=== PATIENT | male | born 1950 | race Caucasian/White ===

== ENCOUNTER → 2016-08-28 | Outpatient (CLI) | payer BC, OTHER ==
[~2016-08-28] VITALS: Ht 193 cm; Wt 111.7 kg
[~2016-08-28] MED LIST: ACET-24 PO; ALLO300T2 PO; ASPEC81 PO; ASPI81TA28 PO; ATEN50TA8 PO; ATOR-22 PO; CLB200 PO; DICL-201 PO; GLUC1CAP35 PO; HYDR25TA4 PO; LISI-725 PO; MULT-506 PO; RXC5 PO
[2016-08-28 13:42] VITALS: Ht 193 cm; Wt 111.7 kg
--- NOTE | 2016-08-28 14:11 | PAT Medication Instructions ---
Service Date Aug 28, 2016. Current Home Medication List Allopurinol (Zyloprim), 300 MG PO QAM Aspirin (Aspirin Ec), 81 MG PO QAM Atenolol (Tenormin), 50 MG PO QAM Atorvastatin (Lipitor), 20 MG PO QPM Diclofenac (Voltaren), 75 MG PO QAM PRN for RN Hydrochlorothiazide (Hctz), 25 MG PO QAM Lisinopril (Zestril), 20 MG PO QAM Medication Instructions For Your Scheduled Surgery - Check with surgeon for instructions: Diclofenac (Voltaren), 75 MG PO QAM PRN for RN Aspirin (Aspirin Ec), 81 MG PO QAM - Hold the following medications the morning of surgery: Lisinopril (Zestril), 20 MG PO QAM Hydrochlorothiazide (Hctz), 25 MG PO QAM - Take the following medications the morning of surgery with a sip of water: Atenolol (Tenormin), 50 MG PO QAM Allopurinol (Zyloprim), 300 MG PO QAM - Take the following medications as scheduled the night before surgery: Atorvastatin (Lipitor), 20 MG PO QPM If you have any questions please call us at [phone] (Savannah Block PA-C) or [phone] or [phone]
--- NOTE | 2016-08-28 14:45 | DIAGNOSTIC IMAGING REPORT ---
CHEST PREADMISSION(PA/LAT) CLINICAL HISTORY: PAT preoperative evaluation COMPARISON STUDY: No previous studies for comparison. FINDINGS: A potential nodular density right pulmonary apex versus overlap artifact. Lungs otherwise appear clear. No evidence for cardiac enlargement. Degenerative changes thoracic spine. IMPRESSION: Nodular density versus overlap artifact right pulmonary apex. CT of the chest is recommended as follow-up. Electronically signed by: Grover Mantilla M.D. 08/28/2016 2:43 PM Dictated Date/Time: 08/28/2016 2:42 PM
[2016-08-28 16:34] LABS: BASO % 0.4 %; BASO ABS # 0.02 K/uL (0-0.2); COMPLETE YES; EOS % 1.1 %; HEMATOCRIT 42.3 % (42-52); IG% 0.2 %; LYMPH % 23.5 %; LYMPH ABS # 1.34 K/uL (1.2-3.4); MEAN CELL VOLUME 92.8 fL (80-100); MEAN CORPUSCULAR HGB CONC 36.6 g/dl (32-36); MEAN PLATELET VOLUME 10.1 fL (7.4-10.4); MONO % 10.7 %; NEUT % 64.1 %; PLATELET COUNT 163 K/uL (130-400); RED BLOOD COUNT 4.56 M/uL (4.7-6.1); WHITE BLOOD COUNT 5.71 K/uL (4.8-10.8)
[2016-08-28 16:38] LABS: URINE APPEARANCE CLEAR (CLEAR); URINE BILIRUBIN NEG (NEG); URINE COLOR YELLOW; URINE NITRITE NEG (NEG); URINE PH 6.5 (4.5-7.5); URINE SPECIFIC GRAVITY 1.011 (1.000-1.030); UROBILINOGEN NEG (NEG)
[2016-08-28 16:40] LABS: MANUAL MICROSCOPIC REQUIRED? NO; REVIEW REQ? NO
[2016-08-28 16:45] LABS: PARTIAL THROMBOPLASTIN RATIO 1.1; PROTHROMBIN TIME (PATIENT) 10.9 SECONDS (9.0-12.0)
[2016-08-28 17:07] LABS: BUN/CREATININE RATIO 12.6 (10-20); CALCIUM 9.3 mg/dl (8.5-10.1); CREATININE 1.2 mg/dl (0.60-1.40); POTASSIUM 3.6 mmol/L (3.5-5.1)
== END | disposition home or self-care (01) ==
LOC: C.LAB 08:00 → EDSTATUS 09-17 07:10
DX: Z01.810 Encounter for preprocedural cardiovascular examination (principal); Z01.811 Encounter for preprocedural respiratory examination; Z01.812 Encounter for preprocedural laboratory examination; R91.8 Other nonspecific abnormal finding of lung field

== ENCOUNTER → 2016-09-24 | Outpatient (CLI) | payer BC ==
[2016-09-27 12:05] LABS: QUANTIF TB AG-NIL <0.00 IU/ML; QUANTIFERON NIL 0.18 IU/ML
== END | disposition home or self-care (01) ==
LOC: C.LAB1850 14:46
PROVIDERS: ATTEND Internal Medicine Pulmonary Disease
DX: R91.1 Solitary pulmonary nodule (principal)

== ENCOUNTER → 2016-09-30 | Outpatient (CLI) | payer BC ==
--- NOTE | 2016-09-30 12:01 | DIAGNOSTIC IMAGING REPORT ---
PET/CT CLINICAL HISTORY: Thyroid mass. Lung mass. COMPARISON STUDY: Chest CT dated 09/07/2016. TECHNIQUE: One hour following the IV administration of 14.25 mCi of F-18 FDG, PET/CT examination was performed from the orbital meatal line through the bony pelvis. Noncontrast CT is performed for the purposes of anatomic correlation and attenuation correction. Note that this does not reflect a diagnostic CT examination. Images were reviewed on a separate [employer] independent workstation. Fused images were obtained. Standard uptake values reported are maximum values within the region of interest expressed an gm/mL. FINDINGS: PET FINDINGS: Head and neck: There is expected physiologic activity within the visualized brain parenchyma at the skull base and the salivary glands. There are is a 2.5 cm low-attenuation nodule in the left lobe of the thyroid gland. This demonstrates low level FDG activity with maximum SUV of 2.8. Low level pharyngeal activity is likely within physiologic limits. Thorax: Evaluation of the thorax demonstrates expected physiologic myocardial activity. There is a 3.4 x 1.8 cm right apical pulmonary mass seen on image #60. This is markedly FDG avid with a maximum SUV of 13.8. No FDG avid mediastinal or hilar lymph nodes are identified. No additional pulmonary lesions are seen. Abdomen and pelvis: There is expected activity within the liver, spleen, kidneys, renal collecting system, and bladder. Low-level bowel activity is likely within physical limits. Low-level activity in the right hip is likely related to advanced arthritic change. Unenhanced CT images: The visualized paranasal sinuses appear clear. A small right mastoid effusion is suspected. The salivary glands are normal in appearance. There is a 2.5 cm low-density nodule in the left lobe of the thyroid gland. No cervical lymphadenopathy is seen. Numerous calcified tonsilliths are observed. There is atherosclerotic calcification of the thoracic aorta. There is mild ectasia of the proximal descending thoracic aorta which measures up to 4.1 cm. The remainder of the thoracic aorta is normal in caliber. The heart is mildly enlarged. There are coronary artery calcifications. No mediastinal, hilar, or axillary lymphadenopathy is identified. A lipoma is noted in the right shoulder musculature. Mild emphysematous change is observed. There is no airspace consolidation typical for pneumonia or pleural effusion. See above under PET findings for assessment of the right upper lobe pulmonary lesion. The unenhanced liver, gallbladder, adrenal glands, pancreas, and kidneys are grossly unremarkable. The spleen is enlarged measuring 18.3 cm in length. The abdominal aorta is normal in caliber noting moderate to advanced atherosclerotic calcification. No bowel obstruction is seen. There is moderate diverticulosis of the left colon without CT evidence of acute diverticulitis. No intraperitoneal free air or abdominal ascites is identified. A normal appendix is identified. No abdominal, pelvic, or inguinal lymphadenopathy is seen. There is a small fat-containing umbilical hernia. The bladder, prostate, and seminal vesicles are grossly normal as imaged. The skeletal structures are well mineralized. No lytic or blastic lesions are seen. Advanced arthritic change is present in the right hip. Mild degenerative change and scoliosis are noted throughout the spine. IMPRESSION: 1. There is a 3.4 x 1.8 cm right apical pulmonary mass. This is markedly FDG avid and should be considered lung cancer until proven otherwise. 2. No additional pulmonary lesions are identified. There is no evidence of metastatic disease. 3. There is a 2.5 cm low-attenuation nodule in the left lobe of the thyroid gland. This demonstrates low level FDG activity and follow-up with a dedicated thyroid ultrasound and fine-needle aspiration is recommended. 4. Cardiomegaly and emphysema. 5. Splenomegaly. 6. Moderate diverticulosis of left colon without CT evidence of acute diverticulitis. 7. There is ectasia of the proximal descending thoracic aorta which measures up to 4.1 cm in diameter. Electronically signed by: Nik Robertson M.D. 09/30/2016 11:59 AM Dictated Date/Time: 09/30/2016 11:20 AM
== END | disposition home or self-care (01) ==
LOC: C.PET 07:47
PROVIDERS: ATTEND Internal Medicine Pulmonary Disease
DX: R91.1 Solitary pulmonary nodule (principal)

== ENCOUNTER → 2016-10-01 | Outpatient (CLI) | payer BC | END | disposition home or self-care (01) | LOC: C.LAB 11:09 | PROVIDERS: ATTEND Surgery | DX: C34.90 Malignant neoplasm of unspecified part of unspecified bronchus or lung (principal) ==

== ENCOUNTER → 2016-10-02 | Outpatient (CLI) | payer BC ==
--- NOTE | 2016-10-02 08:48 | DIAGNOSTIC IMAGING REPORT ---
CT SCAN OF THE CHEST WITHOUT IV CONTRAST CLINICAL HISTORY: Lung cancer. COMPARISON STUDY: Chest x-ray dated . Chest CT dated 09/07/2016. PET/CT dated 09/30/2016. TECHNIQUE: CT scan of the thorax was performed from the thoracic inlet to the upper abdomen. Images are reviewed in the axial, sagittal, and coronal planes. IV contrast was not administered for this examination as per the referring clinician. CT DOSE: 827.05 mGy.cm FINDINGS: Thyroid: Imaged portions of the thyroid gland are normal in size and attenuation. Thoracic aorta: There is mild atherosclerotic calcification of the thoracic aorta, which is normal in caliber and demonstrates standard 3-vessel arch anatomy. Heart: The heart is normal in size and without pericardial effusion. The coronary arteries are densely calcified. Lungs and pleural spaces: Mild emphysema is noted. There is unchanged appearance of an irregular right apical pulmonary mass. This measures 3.4 x 1.8 cm as seen on image #73. No additional pulmonary lesion is identified. Minimal nodular thickening along the left major fissure is unchanged. There is no airspace consolidation typical for pneumonia or pleural effusion. The trachea and central airways are clear. Mediastinum: There is no mediastinal lymphadenopathy. Shoshana: Not well assessed without IV contrast. Axillae: There is no axillary lymphadenopathy. Upper abdomen: A tiny hiatal hernia is identified. Partially visualized upper abdominal viscera is otherwise within normal limits. Skeletal structures: Degenerative change and mild scoliosis is noted in the imaged thoracolumbar spine. No lytic or blastic bony lesions are seen. Intramuscular lipoma is incidentally noted in the right shoulder. IMPRESSION: 1. Unchanged appearance of a 3.4 cm right apical lung mass as compared to recent prior studies. 2. No additional pulmonary lesion is seen. There is no evidence of intrathoracic metastatic disease. 3. Emphysema. 4. No airspace consolidation or pleural effusion is identified. 5. A 3.0 cm low-attenuation left thyroid nodule is again noted. Follow-up with a thyroid ultrasound is again recommended. Electronically signed by: Nik Robertson M.D. 10/02/2016 8:47 AM Dictated Date/Time: 10/02/2016 8:40 AM
== END | disposition home or self-care (01) ==
LOC: C.CTS 08:29
PROVIDERS: ATTEND Surgery
DX: R91.1 Solitary pulmonary nodule (principal)

== ENCOUNTER 2016-10-07 05:19 | Inpatient (IN) | payer BC ==
[2016-10-02 11:49] VITALS: BMI 29.0
[2016-10-07] VITALS (9 sets, daily range): BP systolic 114–145; BP diastolic 70–89; PULSE 64–96; TEMP 36.2–36.6; O2SAT 94–99; Ht 193 cm; Wt 111.7 kg
[~2016-10-07] VITALS: Ht 193 cm; Wt 111.7 kg
[~2016-10-07 05:19] MED LIST changes: -ACET-24 PO; -ASPEC81 PO; -CLB200 PO; -GLUC1CAP35 PO; -MULT-506 PO; -RXC5 PO
[2016-10-07] MEDS ORDERED: GLUC1CAP35 PO (05:36)
[2016-10-07] MEDS ORDERED: MULT-506 PO (05:36)
[2016-10-07] MEDS ORDERED: LACTATED RINGER'S 1000ML IV SCH (06:00)
[2016-10-07] MEDS ORDERED: DEXAMETHASONE SOD INJ 4 MG/ML VIAL ONE (06:37)
[2016-10-07] MEDS ORDERED: PROPOFOL IV EMULSION 10 MG/ML 20 ML VIAL IV ONE (06:37)
[2016-10-07] MEDS ORDERED: ROCURONIUM BROMIDE 10 MG/ML 5 ML VIAL ONE ×3 (06:37→09:49)
[2016-10-07] MEDS ORDERED: LIDOCAINE HCL 2% 2 ML VIAL (20MG/ML) ONE (06:37)
[2016-10-07] MEDS ORDERED: GLYCOPYRROLATE INJ 0.2 MG/ML VIAL ONE ×2 (06:37→09:49)
[2016-10-07] MEDS ORDERED: ONDANSETRON INJ 2 MG/ML 2 ML VIAL ONE (06:37)
[2016-10-07] MEDS ORDERED: NEOSTIGMINE METHYLSULFATE 5 MG/5 ML SYR ONE (06:37)
[2016-10-07] MEDS ORDERED: MIDAZOLAM HCL 1 MG/ML 2ML VIAL ONE (06:38)
[2016-10-07] MEDS ORDERED: FENTANYL CITRATE INJ 50 MCG/1 ML 2 ML VIAL ONE (06:38)
[2016-10-07] MEDS ORDERED: CEFAZOLIN IV 2,000 MG/60 ML D5W IV ONE (07:01)
--- NOTE | 2016-10-07 07:01 | History & Physical Bridge Note ---
H&P Re-Evaluation Bridge Note: I have examined the patient, reviewed the History & Physical and in the interval since the performance of the History & Physical I have noted the following changes of clinical significance: No changes noted
[2016-10-07] MEDS ORDERED: NURSING VERBAL MED ORDER STA (07:13)
[2016-10-07] MEDS ORDERED: SODIUM CHLORIDE 0.9% PF 50 ML VIAL ONE (07:36)
[2016-10-07] MEDS ORDERED: BUPIVACAINE LIPOSOME 1/3% 266 MG/20 ML VIAL INFIL ONE (07:37)
--- NOTE | 2016-10-07 08:17 | DIAGNOSTIC IMAGING REPORT ---
INTRAOPERATIVE RADIOGRAPH CLINICAL HISTORY: Navigational bronchoscopy. Fluoroscopy time: 47 seconds. FINDINGS: A single spot fluoroscopic image of the right upper lung is correlated with CT scan of the chest dated 09/07/2016. The bronchoscope is identified projecting over the right upper lobe. A small metallic fiducial has been placed. There is no evidence of pneumothorax on this single spot fluoroscopic image. A density in the right upper lobe adjacent to fiducial likely represents the patient's known lesion. IMPRESSION: Intraoperative bronchoscopy image as above. See operative report for detailed findings. Electronically signed by: Nik Robertson M.D. 10/07/2016 8:16 AM Dictated Date/Time: 10/07/2016 8:15 AM
--- NOTE | 2016-10-07 08:42 | OPERATIVE REPORT ---
DATE OF OPERATION: 10/07/2016 PREOPERATIVE DIAGNOSIS: Enlarging right upper lobe mass. POSTOPERATIVE DIAGNOSIS: Same. PROCEDURE: Navigational bronchoscopy with marking of this mass with a fiducial marker and with methylene blue. SURGEON: Dr. Murray. AIDS COUNSELOR: Wilbert Shirley PA-C. ANESTHESIA: General anesthesia with endotracheal intubation. INDICATION FOR PROCEDURE AND FINDINGS: Raul Aguiar is a 65-year-old otherwise healthy male who presents with a mass which is very concerning in his right upper lobe. We had a long talk in the office. I think this needs to be excised. We brought him to the operating room today to do just that thoracoscopically. He needs to be marked as this is a intraparenchymal mass in the right upper lobe. SPECIFICS OF THE PROCEDURE: On 10/07/2016 the patient was brought to the operating room. He was intubated without difficulty with a single lumen tube. I placed the superDimension navigational probe and registered his trachea and his airways. We were able to come right out to the mass. I put a fiducial marker directly into it under not only thoracoscopic but also ultrasound and computer guidance. I then repositioned the computer probe so the catheter was about a centimeter or so from the pleura. I then placed a long needle and injected 0.5 mL of methylene blue with was some air behind it. He tolerated it quite well. He is now being reintubated with a double lumen tube and we will proceed with thoracoscopy with a wedge resection and frozen section. Should this prove to be a carcinoma as I suspect we will perform a thoracoscopic right upper lobectomy and mediastinal lymphadenectomy. I attest to the content of the Intraoperative Record and any orders documented therein. Any exceptio ns are noted below.
--- NOTE | 2016-10-07 09:07 | DIAGNOSTIC IMAGING REPORT ---
CHEST 1 VIEW FRONTAL CLINICAL HISTORY: Right upper lobe WEDGE RESECTION COMPARISON STUDY: Chest 10/07/2016. FINDINGS: Single fluoroscopic spot image of the right hemithorax was submitted. There are 2 surgical clamps identified within the right lung. Total fluoroscopy time was 108 seconds. IMPRESSION: Fluoroscopy provided for right upper lobe wedge resection. Electronically signed by: Wilfredo Belle M.D. 10/07/2016 9:06 AM Dictated Date/Time: 10/07/2016 9:05 AM
[2016-10-07] MEDS ORDERED: FENTANYL CITRATE INJ 50 MCG/1 ML 2 ML VIAL IV PRN (09:15)
[2016-10-07] MEDS ORDERED: ONDANSETRON INJ 2 MG/ML 2 ML VIAL IV PRN ×2 (09:15→12:15)
[2016-10-07] MEDS ORDERED: HYDROmorphone INJ 1 MG/ML SYR IV PRN (09:15)
[2016-10-07] MEDS ORDERED: EpHEDrine SULFATE INJ 50 MG/ML AMP IV PRN (09:15)
[2016-10-07] MEDS ORDERED: ATROPINE SULFATE 0.1 MG/ML 5ML SYR IV PRN (09:15)
[2016-10-07] MEDS ORDERED: PROMETHAZINE HCL INJ 6.25 MG in SODIUM CHLORIDE 0.9% 50ML 50 ML IV PRN (09:15)
[2016-10-07] MEDS ORDERED: EpHEDrine SULFATE 50MG/5ML SYR ONE (09:50)
[2016-10-07] MEDS ORDERED: PHENYLEPHRINE HCL INJ 10 MG/ML VIAL ONE (09:50)
[2016-10-07] MEDS ORDERED: D5W AND 1/2NSS 1,000 ML IV SCH (12:06)
--- NOTE | 2016-10-07 12:43 | DIAGNOSTIC IMAGING REPORT ---
SINGLE VIEW CHEST CLINICAL HISTORY: Status post right upper lobe procedure. FINDINGS: An AP, portable, upright chest radiograph is compared to study dated 08/28/2016 and correlated with chest CT dated 10/02/2016. The examination is degraded by portable technique and patient rotation. A chest tube has been placed at the right apex. There is a small to moderate right apical pneumothorax with at least 4 cm of apical pleural separation. The cardiomediastinal silhouette is unremarkable. Emphysema and chronic interstitial thickening are noted. Right paratracheal density is consistent with atelectasis. Small pleural effusions are suspected. No left-sided pneumothorax is seen. The bony thorax is grossly intact. Subcutaneous emphysema is present along the right chest wall. A metallic fiducial seen previously is no longer visualized. IMPRESSION: 1. A chest tube has been placed at the right apex. There is a small to moderate right apical pneumothorax. 2. The fiducial seen on earlier studies is no longer identified and may be surgically absent. Correlation with the surgical history will be required. 3. Emphysema. 4. Small pleural effusions are identified. Electronically signed by: Nik Robertson M.D. 10/07/2016 12:42 PM Dictated Date/Time: 10/07/2016 12:38 PM
--- NOTE | 2016-10-07 12:57 | Discharge Instructions ---
Discharge Instructions Date of Service Oct 07, 2016. Visit Reason for Visit: Right Lung Mass Discharge Discharge Diagnosis / Problem: Right Lung Mass Discharge Goals Goal(s): Learn about illness Activity Recommendations Activity Limitations: resume your previous activity (in 24 hours) Anesthesia . Post Anesthesia Instructions: If you have had General Anesthesia or IV Sedation: * Do not drive today. * Resume driving when surgeon permits. * Do not make important decisions or sign legal documents today. * Call surgeon for: 1. Temperature elevations greater than 101 degrees F. 2. Uncontrollable pain. 3. Excessive bleeding. 4. Persistent nausea and vomiting. 5. Medication intolerance (nausea, vomiting or rash). * For nausea and vomiting use only clear liquids such as: tea, soda, bouillon until nausea subsides, then gradually increase diet as tolerated. * If you have any concerns or questions, call your surgeon's office. If physician is unavailable and it is an emergency, call 911 or go to the nearest emergency room. . Instructions / Follow-Up Instructions / Follow-Up 1. Keep your scheduled appointment with Dr. Murray on October 13 @ 1:30 You may cough up some blood. Call physician if excessive amount noted. Diet Recommendations Recommended Home Diet: resume previous diet Procedures Procedures Performed: Navigational Bronchoscopy with Fiducial Markers, Right Video Assisted Thoracoscopy with Right Upper Lobe Wedge Resection, Right Upper Lobectomy with Mediastinal Lymphadenectomy Pending Studies Studies pending at discharge: no Medical Emergencies . Who to Call and When: Medical Emergencies: If at any time you feel your situation is an emergency, please call 911 immediately. . Non-Emergent Contact Non-Emergency issues call your: Surgeon Call Non-Emergent contact if: you have a fever . . "Provider Documentation" section prepared by Jonah Shirley.
--- NOTE | 2016-10-07 13:13 | Anesthesiology Progress Note ---
Anesthesia Post Op Note Date & Time Oct 07, 2016 at 13:13 Vital Signs Pain Intensity: 3 Vital Signs Past 12 Hours Date Time Temp Pulse Resp B/P Pulse Ox O2 Delivery O2 Flow Rate FiO2 10/07/16 13:00 68 14 113/67 99 Nasal Cannula 4 10/07/16 12:50 68 14 106/63 100 Nasal Cannula 4 10/07/16 12:40 71 14 111/58 100 Mask 10 10/07/16 12:30 70 13 91/53 99 Mask 10 10/07/16 12:21 36.0 68 15 94/60 99 Mask 10 10/07/16 05:38 36.5 64 18 145/89 98 Room Air Notes Mental Status: alert / awake / arousable, participated in evaluation Pt Amnestic to Procedure: Yes Nausea / Vomiting: adequately controlled Pain: adequately controlled Airway Patency, RR, SpO2: stable & adequate BP & HR: stable & adequate Hydration State: stable & adequate Anesthetic Complications: no major complications apparent
--- NOTE | 2016-10-07 13:40 | OPERATIVE REPORT ---
DATE OF OPERATION: 10/07/2016 PREOPERATIVE DIAGNOSES: 1. Mass, right upper lobe. 2. Remote history of cigarette smoking. POSTOPERATIVE DIAGNOSIS: Adenocarcinoma, right upper lobe. PROCEDURES: 1. Thoracoscopy with wedge resection and frozen section. 2. Thoracoscopic right upper lobectomy. 3. Mediastinal lymphadenectomy. SURGEON: Dr. Murray. COREMAKER BENCH: Wilbert Batres PA-C. ANESTHESIA: General anesthesia endotracheal intubation. INDICATIONS FOR PROCEDURE AND FINDINGS: Raul Aguiar is a 65-year-old male who has osteoarthritis in his hip and was preparing for an elective hip replacement by Dr. Bhargav Jamison when a preoperative x-ray showed a mass in his right upper lobe. He underwent a workup and was found to have an isolated mass with no evidence of extrathoracic spread. On 10/07/2016, I took the patient to the operating room and I did a navigational bronchoscopy and marked this mass with methylene blue dye and a fiducial marker. I then turned him and did a thoracoscopic wedge resection of this mass. I did not see the blue marker; however, I did see the fiducial marker. I wedged this out and the frozen section showed this to be a probable adenocarcinoma. We then did an uncomplicated right upper lobectomy thoracoscopically and did a mediastinal lymph node dissection. He had negligible blood loss and did very well. DESCRIPTION OF PROCEDURE: The patient brought to the operating room on 10/07/2016, underwent intubation with a single lumen tube. We did a navigational bronchoscopy and then switched this over to a double lumen tube. The patient was then turned in left lateral decubitus position, right chest prepped, draped in the usual sterile fashion. We then made 3 separate thoracoscopy ports and insufflated CO2. I did not see the methylene blue dye. We then went and used the x-ray and could see the area that this was in, although I could not see it with the scope. Anyway we wedged this out in a generous wedge and upon opening this on the back table we see that there was a mass. While waiting for the frozen section, I freed up the inferior pulmonary ligament and biopsied level 8 and level 9 nodes. I then dissected out the level 7 lymph node as well as level 10 lymph nodes. I dissected out the posterior hilum, cleaned the bronchus and the takeoff of the right upper lobe bronchus. I then flipped the patient back as he had incomplete fissures I could not find the artery and the horizontal fissure. I dissected out the rest of the mediastinal pleura on the right and medially and connected it to our dissection posteriorly and then I biopsied the level 4 node and took out some level 11 and 12 nodes and saw the apical anterior branch quite nicely as well as the superior pulmonary vein. We divided the vein just distal to its confluence with the middle lobe vein to form the superior pulmonary vein. We dissected the apical anterior trunk and fired the EndoGIA stapler across this. Interestingly enough it appeared that the ascending posterior branch to the upper lobe was included in this branch. Blunt dissection was done and I then fired an EndoGIA stapler across the bronchus. We had good inflation of the middle lobe and lower lobe. There was incomplete fissure and there was no real twisting or turning of this. I dissected out level 2 and level 4 nodes. I used 226 mg of Exparel mixed with 60 mL total of saline solution and using an intrathoracic needle blocked the 2nd to the 11th rib. We really had negligible blood loss with this and had a small air leak at the conclusion of the case. Placed 24 Martiniquais chest tubes in the anterior thoracoscopy port and sutured it in place with heavy silk suture. All the muscle layers were closed with 0 Vicryl. 4-0 Monocryl was used to close each of the incisions. Antimicrobial dressings were placed. He tolerated it quite well. I attest to the content of the Intraoperative Record and any orders documented therein. Any exceptions are noted below. KELSI
[2016-10-07] MEDS: METOCLOPRAMIDE HCL INJ 5 MG/ML 2 ML VIAL IV. SCH ×2 (14:39→22:12)
[2016-10-07 15:25] LABS: HEMATOCRIT 41.8 % (42-52); MEAN CELL VOLUME 91.5 fL (80-100); MEAN CORPUSCULAR HEMOGLOBIN 33.3 pg (25-34); MEAN CORPUSCULAR HGB CONC 36.4 g/dl (32-36); MEAN PLATELET VOLUME 9.4 fL (7.4-10.4); PLATELET COUNT 155 K/uL (130-400); RED BLOOD COUNT 4.57 M/uL (4.7-6.1); WHITE BLOOD COUNT 11.85 K/uL (4.8-10.8)
[2016-10-07 15:37] LABS: INR 1.1 (0.9-1.1); PROTHROMBIN TIME (PATIENT) 11.4 SECONDS (9.0-12.0)
[2016-10-07] MEDS: CEFAZOLIN IV 2,000 MG in DEXTROSE 5% 50ML 100 ML IV SCH (16:40)
[2016-10-07] MEDS: DOCUSATE SODIUM 100 MG CAP PO SCH (20:56)
[2016-10-07] MEDS: ATORVASTATIN 20 MG TAB PO SCH (20:56)
[2016-10-07] MEDS: KETOROLAC TROMETHAMINE 15 MG/ML VIAL IV. SCH (22:12)
[2016-10-07] MEDS: ACETAMINOPHEN IV 1,000 MG in EMPTY BAG 0 ML IV SCH (22:12)
[2016-10-08] MEDS: CEFAZOLIN IV 2,000 MG in DEXTROSE 5% 50ML 100 ML IV SCH (00:32)
[2016-10-08 04:28] VITALS: BP 112/71; PULSE 85; TEMP 36.4; O2SAT 94
[2016-10-08] MEDS: METOCLOPRAMIDE HCL INJ 5 MG/ML 2 ML VIAL IV. SCH (06:03)
[2016-10-08] MEDS: KETOROLAC TROMETHAMINE 15 MG/ML VIAL IV. SCH ×3 (06:03→21:40)
[2016-10-08] MEDS: ACETAMINOPHEN IV 1,000 MG in EMPTY BAG 0 ML IV SCH ×3 (06:04→22:23)
[2016-10-08 06:52] VITALS: BP 117/69; PULSE 75; TEMP 36.7; O2SAT 95
[2016-10-08] MEDS: ALLOPURINOL 300 MG TAB PO SCH (07:36)
[2016-10-08] MEDS: ENOXAPARIN 40 MG/0.4 ML SYR SQ SCH (07:37)
[2016-10-08] MEDS: MULTIVITAMIN TAB PO SCH (07:38)
[2016-10-08] MEDS: LISINOPRIL 20 MG TAB PO SCH (07:38)
[2016-10-08] MEDS: ASPIRIN 81 MG ECTAB PO SCH (07:38)
[2016-10-08] MEDS: DOCUSATE SODIUM 100 MG CAP PO SCH ×2 (07:39→21:09)
--- NOTE | 2016-10-08 08:03 | DIAGNOSTIC IMAGING REPORT ---
CHEST ONE VIEW PORTABLE HISTORY: Postoperative lobectomy. COMPARISON: Chest 10/07/2016. FINDINGS: Right chest tube has been slightly pulled back and now is within the right upper lung zone. Right pneumothorax has decreased in size and measures a pleural gap of 2.5 cm. Right perihilar density persists and favors postoperative change. There is also small patchy density within the right lateral lung base, unchanged. There are few linear densities the left lung base suggestive of subsegmental atelectasis. The heart is stable in size. Trace right chest wall subcutaneous emphysema. IMPRESSION: Decrease in size in the small to moderate right apical pneumothorax. Right chest tube has been slightly pulled back. Electronically signed by: Wilfredo Belle M.D. 10/08/2016 8:02 AM Dictated Date/Time: 10/08/2016 8:00 AM
--- NOTE | 2016-10-08 10:45 | Anesthesiology Progress Note ---
Anesthesia Post Op Note Date & Time Oct 08, 2016 at 10:44 Vital Signs Pain Intensity: 0.0 Vital Signs Past 12 Hours Date Time Temp Pulse Resp B/P Pulse Ox O2 Delivery O2 Flow Rate FiO2 10/08/16 08:00 Room Air 10/08/16 06:52 36.7 75 16 117/69 95 Room Air 10/08/16 04:28 36.4 85 18 112/71 94 Room Air 10/08/16 00:00 Room Air 10/07/16 23:23 36.6 93 18 114/70 94 Room Air Notes Mental Status: alert / awake / arousable, participated in evaluation Pt Amnestic to Procedure: Yes Nausea / Vomiting: adequately controlled Pain: adequately controlled Airway Patency, RR, SpO2: stable & adequate BP & HR: stable & adequate Hydration State: stable & adequate Anesthetic Complications: no major complications apparent
[2016-10-08 11:15] VITALS: BP 120/72; PULSE 66; TEMP 36.4; O2SAT 98
--- NOTE | 2016-10-08 12:06 | SURGERY PROGRESS NOTE ---
DATE: 10/08/2016 Mr. Aguiar was seen today on 10/08/2016. He is 1 day status post thoracoscopic right upper lobectomy and mediastinal lymphadenectomy for what appeared to be an early stage cancer. The patient is on room air. He has been ambulating in the hallway. He is tolerating a diet. I think his x-ray looks quite good except for the fact that he is not quite completely expanded his lung. There is a small apical pneumothorax. He has no pleural effusion, no infiltrates. He has a small air leak. At this point, I would like the patient to ambulate as much as possible and to work on his coughing, deep breathing. We discussed this. His pathology is still pending. Otherwise, I think he looks very good.
[2016-10-08 12:30] VITALS: O2SAT 98
[2016-10-08 15:23] VITALS: BP 128/73; PULSE 71; TEMP 36.5; O2SAT 96
[2016-10-08] MEDS: OXYCODONE HCL IR 5 MG TAB (IMMEDIATE RELEASE) PO PRN (19:07)
[2016-10-08] MEDS: MoRPHine SULFATE 2 MG/ML CARP IV PRN (21:10)
[2016-10-08] MEDS: ATORVASTATIN 20 MG TAB PO SCH (21:38)
[2016-10-08 22:55] VITALS: BP 137/71; PULSE 72; TEMP 36.4; O2SAT 95
[2016-10-09] MEDS: ACETAMINOPHEN IV 1,000 MG in EMPTY BAG 0 ML IV SCH ×3 (06:16→22:32)
[2016-10-09] MEDS: OXYCODONE HCL IR 5 MG TAB (IMMEDIATE RELEASE) PO PRN ×3 (06:16→20:01)
[2016-10-09] MEDS: KETOROLAC TROMETHAMINE 15 MG/ML VIAL IV. SCH ×2 (06:16→13:46)
[2016-10-09 07:55] VITALS: BP 132/80; PULSE 69; TEMP 36.7; O2SAT 93
--- NOTE | 2016-10-09 08:32 | DIAGNOSTIC IMAGING REPORT ---
CHEST ONE VIEW PORTABLE CLINICAL HISTORY: s/p lung resection COMPARISON STUDY: 10/08/2016 FINDINGS: Postsurgical changes are present on the right. There is soft tissue fullness the right para mediastinal and hilar region. There is a right-sided chest tube unchanged in position. There is a small amount of subcutaneous emphysema on the right. A small right apical pneumothorax is visualized. A discrete pleural edge is however difficult to delineate.[ IMPRESSION: Stable findings. A small right apical pneumothorax is again suspected. Electronically signed by: Tenzin Mccracken M.D. 10/09/2016 8:31 AM Dictated Date/Time: 10/09/2016 8:29 AM
[2016-10-09 09:04] VITALS: O2SAT 93
[2016-10-09] MEDS: LISINOPRIL 20 MG TAB PO SCH (09:08)
[2016-10-09] MEDS: ALLOPURINOL 300 MG TAB PO SCH (09:09)
[2016-10-09] MEDS: MULTIVITAMIN TAB PO SCH (09:09)
[2016-10-09] MEDS: ASPIRIN 81 MG ECTAB PO SCH (09:09)
[2016-10-09] MEDS: ENOXAPARIN 40 MG/0.4 ML SYR SQ SCH (09:10)
[2016-10-09 09:52] VITALS: O2SAT 96
[2016-10-09] MEDS: DOCUSATE SODIUM 100 MG CAP PO SCH ×2 (10:35→21:44)
--- NOTE | 2016-10-09 10:38 | SURGERY PROGRESS NOTE ---
DATE: 10/09/2016 Mr. Aguiar was seen today on 10/09/2016. He is now 48 hours status post his thoracoscopic right upper lobectomy for nonsmall cell lung carcinoma. I discussed his case with Dr. Del Rio from pathology. Lymph nodes appear to be negative. They are still working on the primary as my staple line for the wedge cut across it. The patient put out very little fluid from his chest tube, it still has an air leak, although it is smaller. We are going to put him on waterseal today. Otherwise, he is ambulating. He has not moved his bowels as of yet but feels like that could happen. He is 93% on room air and his lungs are clear. Overall, I am quite happy with him except for his air leak. It is getting smaller.
[2016-10-09 14:55] VITALS: BP 145/88; PULSE 70; TEMP 36.5; O2SAT 95
[2016-10-09 20:05] VITALS: O2SAT 95
[2016-10-09] MEDS: ATORVASTATIN 20 MG TAB PO SCH (21:44)
[2016-10-09 23:13] VITALS: BP 145/86; PULSE 73; TEMP 36.6; O2SAT 95
[2016-10-10] VITALS (7 sets, daily range): BP systolic 132–148; BP diastolic 82–86; PULSE 66–75; TEMP 36.5–36.8; O2SAT 95–96
[2016-10-10] MEDS: ACETAMINOPHEN IV 1,000 MG in EMPTY BAG 0 ML IV SCH ×3 (06:13→21:38)
--- NOTE | 2016-10-10 07:26 | DIAGNOSTIC IMAGING REPORT ---
SINGLE VIEW CHEST CLINICAL HISTORY: Status post right upper lobe procedure. FINDINGS: An AP, portable, upright chest radiograph is compared to study dated 10/09/2016 and correlated with chest CT dated 10/02/2016. The examination is degraded by portable technique and patient rotation. A right-sided chest tube is unchanged in position, and a small right apical pneumothorax persists. The cardiomediastinal silhouette is unremarkable. Emphysema and chronic interstitial thickening are noted. Suture material projects over the right upper lung. Pleural fluid is noted in the right lung base. Bibasilar atelectasis is observed. No left-sided pneumothorax is seen. The bony thorax is grossly intact. Subcutaneous emphysema is present along the right chest wall. IMPRESSION: 1. A right chest tube is unchanged in position and a small right apical pneumothorax persists. 2. Emphysema. 3. Pleural fluid is again noted at the right lung base. Electronically signed by: Nik Robertson M.D. 10/10/2016 7:25 AM Dictated Date/Time: 10/10/2016 7:23 AM
[2016-10-10] MEDS: DOCUSATE SODIUM 100 MG CAP PO SCH ×2 (08:49→21:36)
[2016-10-10] MEDS: ALLOPURINOL 300 MG TAB PO SCH (08:49)
[2016-10-10] MEDS: ASPIRIN 81 MG ECTAB PO SCH (08:49)
[2016-10-10] MEDS: MULTIVITAMIN TAB PO SCH (08:49)
[2016-10-10] MEDS: ENOXAPARIN 40 MG/0.4 ML SYR SQ SCH (08:50)
[2016-10-10] MEDS: LISINOPRIL 20 MG TAB PO SCH (08:52)
--- NOTE | 2016-10-10 09:22 | SURGERY PROGRESS NOTE ---
DATE: 10/10/2016 DATE: 10/10/2016. Mr. Aguiar was seen today on 10/10/2016. He is now 3 days out from his thoracoscopic right upper lobectomy. The patient has a stage Ia adenocarcinoma of the lung. He will require no adjuvant therapy. His incisions are clean. He is ambulating in the hallway. He is tolerating a diet. He is on room air. The problem is he still has an air leak. It is rather small. On waterseal his small pneumothorax in the apex has not changed. He is draining very little from his chest tube. The air leak is better. I am going to check another film tomorrow and if he has no leak we will remove his chest tube. If he is still leaking I am going to place a Heimlich valve on him and send him home.
[2016-10-10] MEDS: OXYCODONE HCL IR 5 MG TAB (IMMEDIATE RELEASE) PO PRN ×2 (13:06→21:41)
[2016-10-10] MEDS: MoRPHine SULFATE 2 MG/ML CARP IV PRN (13:45)
[2016-10-10] MEDS: ATORVASTATIN 20 MG TAB PO SCH (21:37)
[2016-10-11] MEDS: OXYCODONE HCL IR 5 MG TAB (IMMEDIATE RELEASE) PO PRN ×2 (04:06→10:22)
[2016-10-11] MEDS: ACETAMINOPHEN IV 1,000 MG in EMPTY BAG 0 ML IV SCH ×2 (05:39→13:47)
[2016-10-11 08:00] VITALS: O2SAT 95
--- NOTE | 2016-10-11 08:09 | DIAGNOSTIC IMAGING REPORT ---
CHEST ONE VIEW PORTABLE CLINICAL HISTORY: Lobectomy. COMPARISON STUDY: Chest radiograph October 10, 2016. FINDINGS: A right chest tube remains in place. A small right pneumothorax has slightly decreased in size since prior exam. Superior pleural separation measures 1.9 cm. Right perihilar opacity persists. There is no evidence of pulmonary edema. IMPRESSION: 1. Slight decrease in size of a small right apical pneumothorax. Right chest tube in place. 2. No change in right perihilar/paramediastinal opacity. Electronically signed by: Eliseo Soto M.D. 10/11/2016 8:08 AM Dictated Date/Time: 10/11/2016 8:01 AM
[2016-10-11] MEDS: DOCUSATE SODIUM 100 MG CAP PO SCH (08:40)
[2016-10-11] MEDS: ASPIRIN 81 MG ECTAB PO SCH (08:41)
[2016-10-11] MEDS: ALLOPURINOL 300 MG TAB PO SCH (08:41)
[2016-10-11] MEDS: MULTIVITAMIN TAB PO SCH (08:41)
[2016-10-11] MEDS: ENOXAPARIN 40 MG/0.4 ML SYR SQ SCH (08:42)
[2016-10-11 08:43] VITALS: BP 142/77; PULSE 73
[2016-10-11] MEDS: LISINOPRIL 20 MG TAB PO SCH (08:44)
[2016-10-11] MEDS ORDERED: RXC5 PO (13:42)
--- NOTE | 2016-10-11 13:49 | Discharge Instructions ---
Discharge Instructions Date of Service Oct 11, 2016. Admission Reason for Admission: Right Lung Mass Discharge Discharge Diagnosis / Problem: Adenocarcinoma right upper lobe Discharge Goals Goal(s): Improve function (Walk! Use incentive spirometer.) Activity Recommendations Activity Limitations: per Instructions/Follow-up section Lifting Limitations: no more than 5 pounds Exercise/Sports Limitations: gradually increase as tolerated May Resume Sexual Activity: when tolerated Shower/Bathe: may shower/bathe in 3 days, keep incision dry (Do not get tube site wet.) Driving or Machine Use: Wait until I clear you. . Instructions / Follow-Up Instructions / Follow-Up Office will call you - I need to see you on 10-15-16 with a chest x-ray. Keep dressing in place over tube until I see you. Record how much the tube drains by measuring it in the collection chamber. Current Hospital Diet Patient's current hospital diet: Regular Diet Discharge Diet Recommended Diet: Regular Diet Procedures Procedures Performed: Navigational Bronchoscopy with Fiducial Markers, Right Video Assisted Thoracoscopy with Right Upper Lobe Wedge Resection, Right Upper Lobectomy with Mediastinal Lymphadenectomy Pending Studies Studies pending at discharge: no Medical Emergencies . Who to Call and When: Medical Emergencies: If at any time you feel your situation is an emergency, please call 911 immediately. . Non-Emergent Contact Non-Emergency issues call your: Primary Care Provider Call Dr Murray at [phone] and page him. . "Provider Documentation" section prepared by Johnson Murray. VTE Core Measure Inpt VTE Proph given/why not?: Enoxaparin (Lovenox)SQ, SCD's
[2016-10-11 13:51] VITALS: BP 142/77; PULSE 73; TEMP 36.7; O2SAT 95
--- NOTE | 2016-10-11 14:03 | DISCHARGE SUMMARY ---
DISCHARGE DIAGNOSIS: Stage IA adenocarcinoma right upper lobe. HOSPITAL COURSE: This is a very nice 65-year-old male who has osteoarthritis of the hip and is going to require a hip replacement and preoperative x-ray showed a mass in his right upper lobe. He underwent a workup and felt he was a candidate for surgery and on 10/07/2016 I took the patient to the operating room and I did an electromagnetic navigational bronchoscopy and marked this. I then turned him to thoracoscopy and wedged this mass out and indeed it was an adenocarcinoma. I then did a right upper lobectomy thoracoscopically with mediastinal lymph node dissection. He did well, watched him on the floor that night. Unfortunately, he had an air leak with a small apical pneumothorax. He was on room air, ambulating in the hallway, moving his bowels and looked quite good. His air leak was getting smaller, but still persistent, so on postop day 4 I elected to send him home as his x-ray had improved. The pneumothorax was small apically and had gotten smaller. His air leak was intermittent, but I did not want to pull his chest tube. I sent him home with his chest tube in place and a Heimlich valve on this. All of his incisions were clean. He looked very good. He was afebrile and had 96% saturation on room air after walking down the hallway with a Heimlich valve in place. I discharged him home on postop day 4, and will see him back in the office in 48-72 hours and will make a determination about pulling his tube.
== END 2016-10-11 14:39 | disposition home or self-care (01) | DRG 164 ==
LOC: ENRESERVTM → ENRESERVDT → C.ACU 05:19 → C.MSW 12:13
PROVIDERS: ADMIT Surgery; ATTEND Surgery
PROC: 0BTC4ZZ Resection of Right Upper Lung Lobe, Percutaneous Endoscopic Approach (ICD-10-PCS; principal; 2016-10-07 07:15)
PROC: 07B74ZX Excision of Thorax Lymphatic, Percutaneous Endoscopic Approach, Diagnostic (ICD-10-PCS; principal; 2016-10-07 07:15)
PROC: 0BJ08ZZ Inspection of Tracheobronchial Tree, Via Natural or Artificial Opening Endoscopic (ICD-10-PCS; principal; 2016-10-07 07:15)
PROC: 0BBC4ZX Excision of Right Upper Lung Lobe, Percutaneous Endoscopic Approach, Diagnostic (ICD-10-PCS; principal; 2016-10-07 07:15)
DX: C34.11 Malignant neoplasm of upper lobe, right bronchus or lung (principal); J95.812 Postprocedural air leak; Z87.891 Personal history of nicotine dependence; M16.11 Unilateral primary osteoarthritis, right hip; I10 Essential (primary) hypertension; M10.9 Gout, unspecified; E78.5 Hyperlipidemia, unspecified; Z79.1 Long term (current) use of non-steroidal anti-inflammatories (NSAID); Z79.82 Long term (current) use of aspirin; Z79.899 Other long term (current) drug therapy; Z82.49 Family history of ischemic heart disease and other diseases of the circulatory system

== ENCOUNTER → 2016-10-14 | Outpatient (CLI) | payer BC ==
[~2016-10-14] MED LIST changes: +ACET-24 PO; +ASPEC81 PO; +CLB200 PO; +GLUC1CAP35 PO; +MULT-506 PO; +RXC5 PO
--- NOTE | 2016-10-14 08:47 | DIAGNOSTIC IMAGING REPORT ---
CHEST 2 VIEWS ROUTINE CLINICAL HISTORY: Pulmonary nodule. Lobectomy. COMPARISON STUDY: Chest radiograph October 11, 2016. FINDINGS: A small right apical pneumothorax has decreased in size since exam of October 11, 2016. Superior pleural separation measures 9 mm. The right chest tube has been removed. Surgical staple line within the right hemithorax is noted with expected right hemithorax volume loss. Subcutaneous gas within the right chest wall is unchanged. There is mild asymmetric interstitial thickening and opacity within the right lung which is not unexpected in the early postoperative setting. IMPRESSION: Small right pneumothorax, decreased in size since exam of October 11, 2016. Interval right chest tube removal. Electronically signed by: Eliseo Soto M.D. 10/14/2016 8:45 AM Dictated Date/Time: 10/14/2016 8:44 AM
== END | disposition home or self-care (01) ==
LOC: C.RAD 08:28
PROVIDERS: ATTEND Surgery
DX: R91.1 Solitary pulmonary nodule (principal); J93.9 Pneumothorax, unspecified

== ENCOUNTER → 2016-10-20 | Outpatient (CLI) | payer BC ==
--- NOTE | 2016-10-20 10:41 | DIAGNOSTIC IMAGING REPORT ---
CHEST 2 VIEWS ROUTINE CLINICAL HISTORY: Postop bony nodule resection. Lobectomy. COMPARISON STUDY: No previous studies for comparison. FINDINGS: The cardiac and mediastinal contours remain stable. There is been near complete interval resolution of subcutaneous emphysema on the right. There is no pneumothorax. There is tenting right hemidiaphragm. There is a right apical suture line. There is right-sided volume loss. There is elevation the right hilum, consistent with recent surgery.[ There is no focal pulmonary consolidation. There is no failure. There are no significant pleural effusions. IMPRESSION: Postsurgical change. No acute findings. No evidence of pneumothorax. Electronically signed by: Tenzin Mccracken M.D. 10/20/2016 10:40 AM Dictated Date/Time: 10/20/2016 10:36 AM
== END | disposition home or self-care (01) ==
LOC: C.RAD 09:51
PROVIDERS: ATTEND Surgery
DX: R91.1 Solitary pulmonary nodule (principal)

== ENCOUNTER → 2017-01-05 | Outpatient (CLI) | payer OTHER ==
--- NOTE | 2017-01-12 07:40 | CODING QUERY MEDICAL NECESSITY ---
SUPPORTING DIAGNOSIS NEEDED A supporting diagnosis is required for the test/procedure performed on this patient in order for us to be reimbursed by the patient's insurance. Please provide a supporting diagnosis for the following test/procedure listed below next to the test name along with your signature. *If there is no additional diagnosis for this patient that would support the following test/procedure please document that below next to the test/procedure. Test(s)/Procedure(s) that require a supporting diagnosis: * HEMOGLOBIN A1C DIAGNOSIS: Provider Signature: Date: Thank you Clair Sheehan [employer] Information Management Once completed, please kindly fax back to [phone] For questions please call [phone]
== END | disposition home or self-care (01) ==
LOC: C.LAB 08:51
DX: Z01.812 Encounter for preprocedural laboratory examination (principal)

== ENCOUNTER 2017-01-14 05:02 | Inpatient (IN) | payer OTHER ==
[2016-12-24 09:03] VITALS: BMI 28.0
[2017-01-05 10:31] LABS: BASO % 0.5 %; BASO ABS # 0.03 K/uL (0-0.2); COMPLETE YES; EOS % 2.8 %; HEMATOCRIT 44.3 % (42-52); LYMPH % 24.4 %; LYMPH ABS # 1.41 K/uL (1.2-3.4); MEAN CORPUSCULAR HEMOGLOBIN 30.9 pg (25-34); MEAN CORPUSCULAR HGB CONC 34.3 g/dl (32-36); MEAN PLATELET VOLUME 9.3 fL (7.4-10.4); MONO % 6.9 %; NEUT % 65.4 %; PLATELET COUNT 198 K/uL (130-400); RED BLOOD COUNT 4.92 M/uL (4.7-6.1); WHITE BLOOD COUNT 5.79 K/uL (4.8-10.8)
[2017-01-05 10:50] LABS: URINE APPEARANCE CLEAR (CLEAR); URINE BILIRUBIN NEG (NEG); URINE COLOR YELLOW; URINE NITRITE NEG (NEG); URINE PH 6.5 (4.5-7.5); URINE SPECIFIC GRAVITY 1.011 (1.000-1.030); UROBILINOGEN NEG (NEG)
[2017-01-05 10:56] LABS: BLOOD UREA NITROGEN 18 mg/dl (7-18); BUN/CREATININE RATIO 18.9 (10-20); CALCIUM 9.1 mg/dl (8.5-10.1); CARBON DIOXIDE 31 mmol/L (21-32); CHLORIDE 104 mmol/L (98-107); CREATININE 0.95 mg/dl (0.60-1.40); GLUCOSE 106 mg/dl (70-99); POTASSIUM 4.2 mmol/L (3.5-5.1); SODIUM 139 mmol/L (136-145)
[2017-01-05 11:01] LABS: ESTIMATED AVERAGE GLUCOSE 94 mg/dl; HA1C FLAG Normal (Normal)
[2017-01-05 11:07] LABS: MANUAL MICROSCOPIC REQUIRED? NO; REVIEW REQ? NO
--- NOTE | 2017-01-13 11:09 | History and Physical ---
History & Physical Date Jan 13, 2017. Chief Complaint Right hip pain History of Present Illness The patient is a 66 year old male with complaints of Past Medical/Surgical History Medical Problems: (1) Lung cancer Additional History Hypertension: Yes Other: Hyperlipidemia, gout Allergies Coded Allergies: No Known Allergies (Unverified , 12/24/16) Home Medications Scheduled Allopurinol (Zyloprim), 300 MG PO QAM Aspirin (Aspirin Ec), 81 MG PO QAM Atenolol (Tenormin), 50 MG PO QAM Atorvastatin (Lipitor), 20 MG PO QPM Pybgbechllf-Jzpxfjtjnsj-Qln C- (Glucosamine Chondroitin), 1 CAP PO DAILY Hydrochlorothiazide (Hctz), 25 MG PO QAM Lisinopril (Zestril), 20 MG PO QAM Multivitamin (Multivitamin), 1 TAB PO DAILY Scheduled PRN Diclofenac (Voltaren), 75 MG PO QAM PRN for RN Physical Examination Skin: warm/dry Eyes: normal inspection, EOMI ENT: normal ENT inspection Head: normocephalic Neck: supple, no adenopathy Respiratory/Chest: lungs clear Abdomen / GI: normal bowel sounds Extremities: normal inspection (Right hip decreased active and passive ROM) Neurologic/Psych: no motor/sensory deficits Addiitonal Comments: Right hip end-stage DJD, complete loss of joint space, moderate osteophytes and deformation of femoral head Diagnosis Right hip arthritis Plan of Treatment Right total hip arthroplasty
[2017-01-14] VITALS (11 sets, daily range): BP systolic 99–152; BP diastolic 62–95; PULSE 60–93; TEMP 36.4–36.7; O2SAT 94–99; Ht 190.5 cm; Wt 109.0 kg
[~2017-01-14] VITALS: Ht 190.5 cm; Wt 109.0 kg
[~2017-01-14 05:02] MED LIST changes: -ACET-24 PO; -ASPEC81 PO; -CLB200 PO; -RXC5 PO
[2017-01-14] MEDS ORDERED: FAMOTIDINE 20 MG TAB PO SCH (06:00)
[2017-01-14] MEDS ORDERED: CeleBREX 200 MG CAP PO SCH (06:00)
[2017-01-14] MEDS ORDERED: DEXAMETHASONE 4 MG TAB PO SCH (06:00)
[2017-01-14] MEDS ORDERED: LACTATED RINGER'S 1000ML 1,000 ML IV SCH (06:00)
[2017-01-14] MEDS ORDERED: ROPIVACAINE 5MG/ML 30 ML 150 MG, BUPIVACAINE/EPINEPHR 0.5% MPF 30 ML, KETOROLAC TROMETH... INFIL SCH ×7 (06:00)
[2017-01-14] MEDS ORDERED: LACTATED RINGER'S 1000ML IV SCH (06:00)
[2017-01-14] MEDS ORDERED: CEFAZOLIN 2000 MG/60 ML D5W 60 ML IV SCH (06:00)
[2017-01-14] MEDS ORDERED: ACETAMINOPHEN 500 MG TAB PO SCH (06:00)
[2017-01-14] MEDS ORDERED: LACTATED RINGER'S 500 ML IV SCH (06:00)
[2017-01-14] MEDS ORDERED: METOCLOPRAMIDE HCL 10 MG TAB PO SCH (06:00)
[2017-01-14] MEDS ORDERED: GABAPENTIN 300 MG CAP PO SCH (06:00)
[2017-01-14] MEDS: TRANEXAMIC ACID INJ 1,000 MG in SODIUM CHLORIDE 0.9% 100ML 100 ML IV SCH ×2 (06:06→06:30)
[2017-01-14] MEDS ORDERED: BUPIVACAINE 0.5 % 5 MG/1 ML PF 10ML VIAL ONE (06:15)
[2017-01-14] MEDS ORDERED: BACITRACIN 50000 UNIT VIAL ONE (06:34)
[2017-01-14] MEDS ORDERED: POVIDONE-IODINE OP SOLN 30 ML BTL ONE (06:34)
[2017-01-14] MEDS ORDERED: PROPOFOL IV EMULSION 10 MG/ML 20 ML VIAL IV ONE (06:40)
[2017-01-14] MEDS ORDERED: LIDOCAINE HCL 2% 2 ML VIAL (20MG/ML) ONE (06:40)
[2017-01-14] MEDS ORDERED: MIDAZOLAM HCL 1 MG/ML 2ML VIAL ONE ×3 (06:40→07:28)
[2017-01-14] MEDS ORDERED: FENTANYL CITRATE INJ 50 MCG/1 ML 2 ML VIAL ONE (06:40)
[2017-01-14] MEDS ORDERED: KETOROLAC TROMETHAMINE 30 MG/ML VIAL IV. PRN (07:00)
[2017-01-14] MEDS ORDERED: PHENYLEPHRINE 100MCG/ML 5ML SYR IV PRN (07:00)
[2017-01-14] MEDS ORDERED: HYDROmorphone INJ 2 MG/ML SYR/VIAL IV PRN (07:00)
[2017-01-14] MEDS ORDERED: EpHEDrine SULFATE INJ 50 MG/ML AMP IV PRN (07:00)
[2017-01-14] MEDS ORDERED: ATROPINE SULFATE 0.1 MG/ML 5ML SYR IV PRN (07:00)
[2017-01-14] MEDS ORDERED: ONDANSETRON INJ 2 MG/ML 2 ML VIAL IV PRN ×2 (07:00→08:45)
--- NOTE | 2017-01-14 08:16 | [facility] Operative Report ---
Operative Report Operative Date Jan 14, 2017. Pre-Operative Diagnosis Right Hip, Degenerative Joint Disease Procedure(s) Performed Dictating operative summary on ignacio Villatoro preoperative diagnosis degenerative arthritis right hip procedure right total hip arthroplasty surgeon Lorraine Mrs. navarrete anesthesia spinal consultation on Mr. Matta residual problems adjacent fluid and positioning prepping draping surgical cyst wound closure dressing application. First patient placed in left lateral decubitus position and the right could go on a back incision was made some changes Lorraine is for hemostasis. The fascia was incised throughout the length of the wound and the short external rotators were divided from the posterior acid to the region was covered. A T capsulotomy incision was made in the hip capsule and the hip was dislocated using a combination of flexion abduction and internal rotation. The femoral neck was upper osteotomized at the appropriate level in the femoral head removed. Retractors were placed and the acetabulum exposed the capsule was excised using sharp dissection. The sequential reamings were carried out to a size 62 which gave good exposure of subchondral bone. A 62 mm acetabulum was impacted in position and affixed using a single 35 mm cancellus screw. A elevated posterior wall liner was placed. Next attention was turned to the proximal femur and the box osteotome is used to gain access to the femoral canal a T-handle rasp was utilized to further open the femoral canal. Sequential raspings were carried up to a size 6 which gave good fill of the proximal femur. A trial reduction was carried out and a extended offset +2.5 mm femoral head gave best reproduction of soft tissue tension and leg length. The trial was removed and the final femoral stem and head was impacted in position. The hip was relocated and taken through full range of motion was found to be quite stable the wound was thoroughly irrigated with pulsatile irrigation the joint mix was injected throughout the incision the Betadine wash was injected and final irrigation was carried out and was closed in layers fascia was closed using nylon Vicryl subcutaneous closure noted skin was closed lisa sterile dressing of Adaptic 4 x 4's and [place] dressing was applied. Surgeon Dr. Bhargav Jamison Tumor Registrar Surgeon(s) Dung Navarrete PA-C Estimated Blood Loss 150ml Findings OA Specimens A.) Right Femoral Head Disposition Recovery Room / PACU I attest to the content of the Intraoperative Record and any orders documented therein. Any exceptions are noted below.
[2017-01-14] MEDS ORDERED: BACITRACIN OINT 15 GM TUBE ONE (08:34)
[2017-01-14] MEDS ORDERED: MoRPHine SULFATE 2 MG/ML CARP IV PRN (08:45)
[2017-01-14] MEDS ORDERED: ZOLPIDEM TARTRATE 5 MG TAB PO PRN (08:45)
[2017-01-14] MEDS ORDERED: MAGNESIUM HYDROXIDE SUSP 30 ML UDC PO PRN (08:45)
[2017-01-14] MEDS ORDERED: OXYCODONE HCL IR 5 MG TAB (IMMEDIATE RELEASE) PO PRN (08:45)
[2017-01-14] MEDS ORDERED: TAMSULOSIN HCL 0.4 MG CAP PO PRN (08:45)
[2017-01-14] MEDS ORDERED: ALUMINUM/MAGNESIUM/SIMETH (MAALOX MAX) 30 ML UDC PO PRN (08:45)
[2017-01-14] MEDS ORDERED: METOCLOPRAMIDE HCL INJ 5 MG/ML 2 ML VIAL IV PRN (08:45)
--- NOTE | 2017-01-14 09:02 | Anesthesiology Progress Note ---
Anesthesia Post Op Note Date & Time Jan 14, 2017 at 09:02 Vital Signs Pain Intensity: 0 Vital Signs Past 12 Hours Date Time Temp Pulse Resp B/P (MAP) Pulse Ox O2 Delivery O2 Flow Rate FiO2 01/14/17 08:55 69 16 105/55 95 Nasal Cannula 2 01/14/17 08:45 77 16 102/63 95 Room Air 01/14/17 08:39 36.1 82 16 92/66 95 Room Air 01/14/17 05:32 36.4 67 20 152/95 97 Room Air Notes Mental Status: alert / awake / arousable, participated in evaluation Pt Amnestic to Procedure: Yes Nausea / Vomiting: adequately controlled Pain: adequately controlled Airway Patency, RR, SpO2: stable & adequate BP & HR: stable & adequate Hydration State: stable & adequate Anesthetic Complications: no major complications apparent
--- NOTE | 2017-01-14 09:13 | DIAGNOSTIC IMAGING REPORT ---
AP PELVIS, CROSSTABLE LATERAL RIGHT HIP History: Right total hip arthroplasty. Degenerative arthritis. Postop. FINDINGS: The patient is status post a right total hip arthroplasty. The hardware is intact. No fracture or dislocation. Skin lisa and surgical drains are in place. IMPRESSION: Right total hip arthroplasty. No evidence for hardware complication Electronically signed by: Wilfredo Belle M.D. 01/14/2017 9:11 AM Dictated Date/Time: 01/14/2017 9:11 AM
[2017-01-14] MEDS ORDERED: MoRPHine SULFATE 10 MG/ML CARP/VIAL IV PRN (09:15)
[2017-01-14] MEDS ORDERED: MoRPHine SULFATE 4 MG/ML 1 ML CARP\\VIAL IV PRN (09:15)
--- NOTE | 2017-01-14 10:54 | Medical Consult ---
Consultation Date of Consultation: Jan 14, 2017. Attending Physician: Bhargav Jamison M.D. Reason for Consultation: Post Op Medical Management History of Present Illness 66 year old male who is s/p right LEONORA today by Dr. Jamison. Patient reports increasing pain over the past several years. He failed outpatient conservative measures and therefore presented for the planned procedure today. Post operatively the patient is doing well. He reports his pain is well controlled. He denies chest pain and shortness of breath. No lightheadedness, dizziness, or diaphoresis. He denies abdominal pain and nausea. He has not voided since surgery. Past Medical/Surgical History Medical Problems: (1) Adenocarcinoma of lung, stage 1 Permanent Comment: s/p mass resection and RUL lobectomy Status: Chronic (2) Gout Status: Chronic (3) HLD (hyperlipidemia) Status: Chronic (4) HTN (hypertension) Status: Chronic Surgical Problems: (1) H/O umbilical hernia repair Status: Chronic (2) History of dental surgery Status: Chronic (3) Status post lobectomy of lung Permanent Comment: for adenocarcinoma Status: Chronic Family History Diabetes mellitus FATHER Hypertension FATHER MOTHER Social History Smoking Status: Former Smoker Alcohol Use: occasionally Allergies Coded Allergies: No Known Allergies (Unverified , 01/14/17) Home Medications Glucosamine Chondroitin (Ozzawplvfgq-Qwiarmuzckx-Veb C-) 1 Cap Cap 1 Cap PO DAILY Multivitamin (Multivitamins) Tab 1 Tab PO DAILY Aspirin Ec (Aspirin) 81 Mg Tab 81 Mg PO QAM Voltaren (Diclofenac Sodium) 75 Mg Tabcr 75 Mg PO QAM PRN WITH FOOD Lipitor (Atorvastatin Calcium) 20 Mg Tab 20 Mg PO QPM Zyloprim (Allopurinol) 300 Mg Tab 300 Mg PO QAM Zestril (Lisinopril) 20 Mg Tab 20 Mg PO QAM Tenormin (Atenolol) 50 Mg Tab 50 Mg PO QAM Hctz (Hydrochlorothiazide) 25 Mg Tab 25 Mg PO QAM Current Inpatient Medications Current Inpatient Medications Medications (Trade) Dose Ordered Sig/José Antonio Route Start Time Stop Time Status Last Admin Dose Admin Cefazolin Sodium 60 ml @ 100 mls/hr PREOP IV 01/14/17 06:00 01/14/17 18:00 01/14/17 07:09 100 MLS/HR Acetaminophen (Tylenol Tab) 1,000 mg PREOP PO 01/14/17 06:00 01/14/17 18:00 01/14/17 06:07 1,000 MG Celecoxib (CeleBREX CAP) 200 mg PREOP PO 01/14/17 06:00 01/14/17 18:00 01/14/17 06:07 200 MG Dexamethasone (Decadron Tab) 8 mg PREOP PO 01/14/17 06:00 01/14/17 18:00 01/14/17 06:06 8 MG Famotidine (Pepcid Tab) 20 mg PREOP PO 01/14/17 06:00 01/14/17 18:00 01/14/17 06:07 20 MG Gabapentin (Neurontin Cap) 300 mg PREOP PO 01/14/17 06:00 01/14/17 18:00 01/14/17 06:07 300 MG Metoclopramide HCl (Reglan Tab) 10 mg PREOP PO 01/14/17 06:00 01/14/17 18:00 01/14/17 06:06 10 MG Tranexamic Acid 1000 mg/Sodium Chloride 110 ml @ 660 mls/hr TODAY@06,0630 IV 01/14/17 06:00 01/14/17 18:00 01/14/17 06:06 660 MLS/HR Ondansetron HCl (Zofran Inj) 4 mg ONE PRN IV 01/14/17 07:00 01/14/17 12:00 Atropine Sulfate (Atropine Sulfate 0.1MG/Ml Inj) 0.5 mg Q1M PRN IV 01/14/17 07:00 01/14/17 12:00 Ephedrine Sulfate (EpHEDrine SULFATE INJ) 5 mg Q5M PRN IV 01/14/17 07:00 01/14/17 12:00 Ketorolac Tromethamine (Toradol Inj) 30 mg ONE PRN IV. 01/14/17 07:00 01/14/17 12:00 Hydromorphone HCl (Dilaudid Inj) 0.25 mg Q5M PRN IV 01/14/17 07:00 01/14/17 12:00 Phenylephrine HCl (Tye-Synephrine 500MCG/5ML Syr) 100 mcg Q5M PRN IV 01/14/17 07:00 01/14/17 12:00 Potassium Chloride/Dextrose/ Sod Cl 1,000 ml @ 100 mls/hr Q10H IV 01/14/17 10:30 01/15/17 10:29 Ketorolac Tromethamine (Toradol Inj) 30 mg Q6H IV. 01/14/17 12:00 01/15/17 11:59 Celecoxib (CeleBREX CAP) 200 mg BID PO 01/15/17 21:00 02/14/17 20:59 Oxycodone HCl (Roxicodone Immediate Rel Tab) 1 TABLET FOR PAIN RATING... Q4H PRN PO 01/14/17 08:45 01/28/17 08:44 Morphine Sulfate (MoRPHine SULFATE INJ) 2 mg Q2HWA PRN IV 01/14/17 08:45 01/28/17 08:44 Acetaminophen (Tylenol Tab) 1,000 mg Q8 PO 01/14/17 14:00 02/13/17 13:59 Pregabalin (Lyrica Cap) 75 mg BID PO 01/14/17 21:00 02/13/17 20:59 Magnesium Hydroxide (Milk Of Magnesia Susp) 30 ml Q6H PRN PO 01/14/17 08:45 02/13/17 08:44 Docusate Sodium (coLACE CAP) 100 mg BID PO 01/14/17 21:00 02/13/17 20:59 Diphenhydramine HCl (Benadryl Cap) 25 mg Q8H PRN PO 01/14/17 08:45 02/13/17 08:44 Al Hydrox/Mg Hydrox/Simethicone (Maalox Max Susp) 15 ml Q4H PRN PO 01/14/17 08:45 02/13/17 08:44 Zolpidem Tartrate (Ambien Tab) 5 mg HSZ PRN PO 01/14/17 08:45 02/13/17 08:44 Multivitamins (Multivitamin Tab) 1 tab QAM PO 01/15/17 09:00 02/14/17 08:59 Ondansetron HCl (Zofran Inj) 4 mg Q6H PRN IV 01/14/17 08:45 02/13/17 08:44 Metoclopramide HCl (Reglan Inj) 10 mg Q6H PRN IV 01/14/17 08:45 02/13/17 08:44 Ferrous Gluconate (Ferrous Gluconate Tab) 324 mg TIDM PO 01/14/17 12:30 02/13/17 12:29 Pantoprazole Sodium (Protonix Tab) 40 mg QAM PO 01/15/17 09:00 02/14/17 08:59 Tamsulosin HCl (Flomax Cap) 0.4 mg QAM PRN PO 01/14/17 08:45 02/13/17 08:44 Cefazolin Sodium 2000 mg/Dextrose 60 ml @ 100 mls/hr Q8H IV 01/14/17 15:00 01/14/17 23:35 Dexamethasone Sodium Phosphate 10 mg/Syringe 2.5 ml @ 1 mls/min 0730 IV 01/15/17 07:30 01/15/17 07:33 Aspirin (Ecotrin Tab) 81 mg BID PO 01/14/17 21:00 02/13/17 20:59 Allopurinol (Zyloprim Tab) 300 mg QAM PO 01/14/17 09:00 02/13/17 08:59 Atenolol (Tenormin Tab) 50 mg QAM PO 01/14/17 09:00 02/13/17 08:59 Future hold Atorvastatin Calcium (Lipitor Tab) 20 mg QPM PO 01/14/17 21:00 02/13/17 20:59 Lisinopril (Zestril Tab) 20 mg QAM PO 01/14/17 11:00 02/13/17 10:59 Bacitracin (Bacitracin Oint) 1 appln BID EXT 01/14/17 11:00 02/13/17 10:59 Morphine Sulfate (MoRPHine SULFATE INJ) 4 mg Q2HWA PRN IV 01/14/17 09:15 01/28/17 09:14 Morphine Sulfate (MoRPHine SULFATE INJ) 6 mg Q2HWA PRN IV 01/14/17 09:15 01/28/17 09:14 Review of Systems ROS per HPI, all other systems reviewed and negative Physical Exam Date Time Temp Pulse Resp B/P (MAP) Pulse Ox O2 Delivery O2 Flow Rate FiO2 01/14/17 10:24 68 20 112/71 (85) 98 Nasal Cannula 2.0 01/14/17 10:00 60 19 114/78 (90) 94 Nasal Cannula 2.0 01/14/17 09:15 77 16 100/64 97 Nasal Cannula 2 01/14/17 09:05 36.3 73 16 99/55 96 Nasal Cannula 2 01/14/17 08:55 69 16 105/55 95 Nasal Cannula 2 01/14/17 08:45 77 16 102/63 95 Room Air 01/14/17 08:39 36.1 82 16 92/66 95 Room Air 01/14/17 05:32 36.4 67 20 152/95 97 Room Air General Appearance: no apparent distress Head: normocephalic Eyes: normal inspection ENT: hearing grossly normal Neck: supple, no JVD Respiratory/Chest: lungs clear, normal breath sounds, no respiratory distress Cardiovascular: regular rate, rhythm, no edema, normal peripheral pulses Abdomen/GI: normal bowel sounds, non tender, soft Extremities/Musculoskelatal: + pertinent finding (s/p right hip surgery, drain in place draining bloody drainage; RLE circulation and sensation intact, movement limited. LLE CSM intact) Neurologic/Psych: no motor/sensory deficits, alert, normal mood/affect, oriented x 3 Skin: normal color, warm/dry Assessment & Plan S/P RIGHT LEONORA - POD#0 - activity and wound care orders as per ortho - pain control with bowel regimen - PT/OT - monitor H/H for acute blood loss anemia and transfuse blood products PRN HTN - BP controlled, continue lisinopril and atenolol - hold HCTZ to prevent perioperative dehydration GOUT - continue allopurinol HLD - continue statin DVT PROPHYLAXIS - deferred to ortho Attending addendum: The patient was seen and examined OOB in a chair Denies any complaints NO CP,palpitation,SOB No abdominal Pain,nausea and or vomiting O/E No distress Chest-clear Heart-regular Abdomen-benign,no masses,bowel sound present Extremities-negative for any edema Labs and Imaging studies were reviewed Agree with the assessment and plan. Dr Flor Bower Thank you for this consultation. We will follow the patient with you during their hospital stay. You can reach a [facility] 08/02 via pager @ [phone].
[2017-01-14] MEDS ORDERED: HYDROCHLOROTHIAZIDE 25 MG TAB PO SCH (11:00)
[2017-01-14] MEDS: ALLOPURINOL 300 MG TAB PO SCH ×2 (11:00→11:30)
[2017-01-14] MEDS: D5W AND 1/2NSS + 20MEQ KCL 1,000 ML IV SCH ×2 (11:31→21:00)
[2017-01-14] MEDS: BACITRACIN OINT 15 GM TUBE EXT SCH ×2 (11:31→21:00)
[2017-01-14] MEDS: LISINOPRIL 20 MG TAB PO SCH (11:32)
[2017-01-14] MEDS: KETOROLAC TROMETHAMINE 30 MG/ML VIAL IV. SCH ×3 (11:33→23:19)
[2017-01-14] MEDS: ACETAMINOPHEN 500 MG TAB PO SCH ×2 (13:31→21:58)
[2017-01-14] MEDS: FERROUS GLUCONATE 324 MG TAB PO SCH ×2 (13:31→17:32)
[2017-01-14] MEDS: CEFAZOLIN IV 2,000 MG in DEXTROSE 5% 50ML 50 ML IV SCH ×2 (14:59→22:41)
[2017-01-14] MEDS: ASPIRIN 81 MG ECTAB PO SCH (21:00)
[2017-01-14] MEDS: PREGABALIN 75 MG CAP PO SCH (21:00)
[2017-01-14] MEDS ORDERED: ATORVASTATIN 20 MG TAB PO SCH (21:00)
[2017-01-14] MEDS: DOCUSATE SODIUM 100 MG CAP PO SCH (21:00)
[2017-01-15 03:20] VITALS: BP 100/62; PULSE 65; TEMP 36.6; O2SAT 97
[2017-01-15 05:57] LABS: BASO % 0.1 %; BASO ABS # 0.01 K/uL (0-0.2); COMPLETE YES; HEMATOCRIT 28.4 % (42-52); IG% 0.3 %; LYMPH % 9.3 %; LYMPH ABS # 1.09 K/uL (1.2-3.4); MEAN CELL VOLUME 87.9 fL (80-100); MEAN CORPUSCULAR HEMOGLOBIN 32.2 pg (25-34); MEAN CORPUSCULAR HGB CONC 36.6 g/dl (32-36); MONO % 10.3 %; PLATELET COUNT 174 K/uL (130-400); RED BLOOD COUNT 3.23 M/uL (4.7-6.1)
[2017-01-15] MEDS: D5W AND 1/2NSS + 20MEQ KCL 1,000 ML IV SCH (06:04)
[2017-01-15] MEDS: KETOROLAC TROMETHAMINE 30 MG/ML VIAL IV. SCH (06:04)
[2017-01-15] MEDS: ACETAMINOPHEN 500 MG TAB PO SCH ×2 (06:05→13:11)
[2017-01-15 06:30] LABS: BUN/CREATININE RATIO 21.3 (10-20); CALCIUM 8.6 mg/dl (8.5-10.1); CREATININE 1.1 mg/dl (0.60-1.40); POTASSIUM 4.1 mmol/L (3.5-5.1)
[2017-01-15] MEDS ORDERED: DEXAMETHASONE INJ 10 MG in SYRINGE 0 ML IV SCH (07:30)
[2017-01-15] MEDS: DOCUSATE SODIUM 100 MG CAP PO SCH (07:35)
[2017-01-15] MEDS: FERROUS GLUCONATE 324 MG TAB PO SCH ×2 (07:36→11:45)
[2017-01-15] MEDS: LISINOPRIL 20 MG TAB PO SCH (07:36)
[2017-01-15] MEDS: ASPIRIN 81 MG ECTAB PO SCH (07:36)
[2017-01-15] MEDS: BACITRACIN OINT 15 GM TUBE EXT SCH (07:37)
[2017-01-15] MEDS: PREGABALIN 75 MG CAP PO SCH (07:39)
[2017-01-15 07:54] VITALS: BP 118/72; PULSE 64; TEMP 36.3; O2SAT 97
--- NOTE | 2017-01-15 08:09 | Orthopedic Progress Note ---
Orthopedic Progress Note Date of Service Jan 15, 2017. Subjective Post OP Day: 1 Reports: feeling well Objective N/V intact, dressing C/D/I (Hemovac d/c'd), toes mobile Date Time Temp Pulse Resp B/P (MAP) Pulse Ox O2 Delivery O2 Flow Rate FiO2 01/15/17 07:54 36.3 64 18 118/72 (87) 97 Room Air 01/15/17 07:30 Room Air 01/15/17 03:20 36.6 65 14 100/62 (75) 97 Room Air 01/14/17 23:14 Room Air 01/14/17 23:13 36.5 87 14 99/66 (77) 96 Room Air 01/14/17 20:26 111/72 (85) 01/14/17 19:05 36.4 78 16 99/62 (74) 97 Room Air 01/14/17 15:50 96 Nasal Cannula 01/14/17 15:45 36.7 93 18 107/72 (84) 96 Nasal Cannula 2.0 01/14/17 12:30 36.7 73 18 122/79 (93) 99 Nasal Cannula 2.0 01/14/17 11:33 68 16 107/64 (78) 99 Nasal Cannula 2.0 01/14/17 10:24 68 20 112/71 (85) 98 Nasal Cannula 2.0 01/14/17 10:00 60 19 114/78 (90) 94 Nasal Cannula 2.0 01/14/17 09:40 Nasal Cannula 2.0 01/14/17 09:30 Nasal Cannula 2.0 01/14/17 09:30 36.5 78 16 101/65 (77) 95 Nasal Cannula 2.0 01/14/17 09:15 77 16 100/64 97 Nasal Cannula 2 01/14/17 09:05 36.3 73 16 99/55 96 Nasal Cannula 2 01/14/17 08:55 69 16 105/55 95 Nasal Cannula 2 01/14/17 08:45 77 16 102/63 95 Room Air 01/14/17 08:39 36.1 82 16 92/66 95 Room Air Laboratory Results 24 Hours: Test 01/15/17 05:06 White Blood Count 11.70 K/uL Red Blood Count 3.23 M/uL Hemoglobin 10.4 g/dL Hematocrit 28.4 % Mean Corpuscular Volume 87.9 fL Mean Corpuscular Hemoglobin 32.2 pg Mean Corpuscular Hemoglobin Concent 36.6 g/dl Platelet Count 174 K/uL Mean Platelet Volume 9.0 fL Neutrophils (%) (Auto) 80.0 % Lymphocytes (%) (Auto) 9.3 % Monocytes (%) (Auto) 10.3 % Eosinophils (%) (Auto) 0.0 % Basophils (%) (Auto) 0.1 % Neutrophils # (Auto) 9.37 K/uL Lymphocytes # (Auto) 1.09 K/uL Monocytes # (Auto) 1.20 K/uL Eosinophils # (Auto) 0.00 K/uL Basophils # (Auto) 0.01 K/uL Assessment & Plan Assessment: 66 yo male stable POD #1 s/p right LEONORA Plan: 1. Med management- 2. DVT prophylaxis- ASA, SCDs 3. PT/OT 4. D/C planning- home w/ HH
[2017-01-15] MEDS ORDERED: ACET-24 PO (08:11)
[2017-01-15] MEDS ORDERED: RXC5 PO (08:11)
[2017-01-15] MEDS ORDERED: ASPEC81 PO (08:11)
[2017-01-15] MEDS ORDERED: CLB200 PO (08:11)
--- NOTE | 2017-01-15 08:12 | Discharge Instructions ---
Discharge Instructions Date of Service Jan 15, 2017. Admission Reason for Admission: Right Hip Degenerative Joint Disease Discharge Discharge Diagnosis / Problem: Right hip arthritis Discharge Goals Goal(s): Decrease discomfort, Improve function Activity Recommendations Activity Limitations: as noted below Weightbearing Status: Right weightbearing (as tolerated) . Instructions / Follow-Up Instructions / Follow-Up ACTIVITY RECOMMENDATIONS: SELF CARE INSTRUCTIONS AFTER TOTAL HIP REPLACEMENT Until the incision and soft tissues around your hip have healed, there is a possibility that the hip prosthesis could dislocate. A. Observe the following precautions to prevent dislocation: 1. Don't bend your hip greater than 90 degrees. 2. Avoid crossing your legs or ankles while standing or lying. 3. Sit with your feet placed 6 inches apart. 4. When sitting, keep your knees below your hips. Sit on a firm surface, avoid deep, soft chairs and couches. Use an elevated toilet seat in the bathroom. 5. Don't bend over at the waist. Use a long handled shoehorn and a sock aid to help you put on your shoes and socks. A tool design draftsperson can help you fruit picker machine operator objects that are too high or too low to reach. 6. Keep car riding to a minimum for at least one month after surgery. B. Your balance may be shaky for a while. Use crutches or a walker until directed by your doctor. C. Use hand rails when walking on stairs. D. Wear low heeled shoes with non-slip soles. E. Be sure that your floors are free of things that could trip you - throw rugs , electrical cords, small objects. Avoid wet and waxed floors, especially with crutches and canes. F. Try to walk several times a day with rest periods between. G. Continue with all the exercises taught to you in the hospital. Again, make walking a part of your daily routine. SPECIAL CARE INSTRUCTIONS: VERY IMPORTANT TO READ AND REVIEW A. You may still be at risk for phlebitis and blood clots. 1. Wear surgical stockings (JENAE hose) for 2 weeks after surgery to improve circulation and reduce swelling. 2. Take Aspirin 81mg twice daily for 4 weeks or as directed by your doctor. This is your blood thinner. 3. High risk patients may be prescribed a stronger blood thinner if necessary. 4. If you are on Coumadin normally, your family doctor/it compliance analyst should monitor your blood work. Expect a phone call the day of or the day after bloodwork is drawn to adjust your dosage. B. You must take antibiotics before having dental work, bladder, bowel and other surgery. Your doctor will provide you with a permanent card to carry describing precautions. C. Call [facility] if you have a fever, redness or swelling around the incision, cloudy drainage from incision, or sudden increase in pain in your hip, not relieved by your regular pain medication. D. Please call the office at if you have any concerns or questions about your operation or recovery. * YOU MAY SHOWER, NO TUB BATHS UNTIL CLEARED BY YOUR DOCTOR. * WEAR JENAE HOSE 20 HOURS PER DAY FOR 2 WEEKS. * YOU SHOULD USE A WALKER OR CRUTCHES FOR 2-4 WEEKS. THIS WILL HELP PREVENT STRAIN ON YOUR HIP MUSCLE AND ALLOW IT TO HEAL PROPERLY. YOU MAY WEAN TO A CANE TOLERATED. * MOST PATIENTS WILL HAVE HOME NURSING FOR THERAPY. IF YOU DECIDE TO DO OUTPATIENT PHYSICAL THERAPY, PLEASE SCHEDULE THIS 3 TIMES PER WEEK. Silverlon- This is a large adhesive bandage that contains silver ions. This helps your incision heal by fighting off bacteria and protecting it from the outside environment. You are permitted to shower with this dressing. This will remain on your incision for 7 days and then should be removed. Some visible blood or drainage through the dressing window is normal. If there is significant drainage or leaking noted before the 7 days notify your doctor's office immediately. Once removed, keep incision clean and dry. If there is any drainage or redness noted, please call your surgeon. FOLLOW UP VISIT: If appointment is not already scheduled: Please call [facility] to make a follow-up appointment for 2 weeks after your surgery at . Current Hospital Diet Patient's current hospital diet: Regular Diet Discharge Diet Recommended Diet: Regular Diet Procedures Procedures Performed: Right Total Hip Arthroplasty, Uncemented Pending Studies Studies pending at discharge: no Laboratory Results Hemoglobin A1c Test 01/05/17 08:59 Range/Units Estimated Average Glucose 94 mg/dl Hemoglobin A1c 4.9 4.5-5.6 % Medical Emergencies . Who to Call and When: Medical Emergencies: If at any time you feel your situation is an emergency, please call 911 immediately. . Non-Emergent Contact Non-Emergency issues call your: Surgeon Call Non-Emergent contact if: temperature is above 101.5, your pain is not controlled, wound has increased drainage, wound has increased redness . "Provider Documentation" section prepared by Dung Navarrete PA-C. . VTE Core Measure Inpt VTE Proph given/why not?: Other Anticoagulation (ASA 81mg bid), T.E.D. Stockings, SCD's [place] Drug Monitoring Program Search Results: patient reviewed within database, no issues identified
[2017-01-15] MEDS ORDERED: MULTIVITAMIN TAB PO SCH (09:00)
[2017-01-15] MEDS ORDERED: PANTOprazole SOD 40 MG TAB PO SCH (09:00)
[2017-01-15 11:41] VITALS: BP 114/70; PULSE 65; TEMP 36.6; O2SAT 97
[2017-01-15 11:53] VITALS: BP 114/70; PULSE 65; TEMP 36.6; O2SAT 97
[2017-01-15] MEDS ORDERED: CeleBREX 200 MG CAP PO SCH (21:00)
--- NOTE | 2017-01-27 09:08 | Discharge Summary ---
Orthopedic Discharge Summary Admission Date/Reason Jan 14, 2017 at 06:40 Right Hip Degenerative Joint Disease. Discharge Date/Disposition Jan 15, 2017 Home with services Diagnosis Principal Diagnosis: Right hip arthritis Procedure(s) Performed Right total hip arthroplasty Medication Reconciliation New Medications: Acetaminophen (Sb Non-Aspirin Extra Stre) 500 Mg Tab 1000 MG PO Q8 for 30 Days, TAB Aspirin (Aspirin EC Low Dose) 81 Mg Ectab 81 MG PO BID for 30 Days Celecoxib (Celebrex) 200 Mg Cap 200 MG PO BID, #60 CAP Oxycodone HCl (Oxycodone HCl) 5 Mg Tab 5-10 MG PO Q4-6 PRN for Pain, #60 TAB Continued Medications: Allopurinol (Zyloprim) 300 Mg Tab 300 MG PO QAM, TAB Atenolol (Tenormin) 50 Mg Tab 50 MG PO QAM, TAB Atorvastatin (Lipitor) 20 Mg Tab 20 MG PO QPM, TAB Ptjbueglsqw-Pflgaxqhvhw-Ekl C- (Glucosamine Chondroitin) 1 Cap Cap 1 CAP PO DAILY Hydrochlorothiazide (Hctz) 25 Mg Tab 25 MG PO QAM, TAB Lisinopril (Zestril) 20 Mg Tab 20 MG PO QAM, TAB Multivitamin (Multivitamin) Tab 1 TAB PO DAILY, TAB Discontinued Medications: Aspirin (Aspirin Ec) 81 Mg Tab 81 MG PO QAM Diclofenac (Voltaren) 75 Mg Tabcr 75 MG PO QAM PRN for RN, TAB WITH FOOD Admission Physical Exam As per Admitting History & Physical. Hospital Course Pt underwent right total hip arthroplasty without complication. Pt tolerated the procedure well and was discharged to the recovery room. Pot-operative pain well controlled with spinal anesthesia, intra-op injection, IV, and oral pain medication. Pt started on Aspirin for DVT prophylaxis and also used SDCs. Drain was discontinued on POD #1 and dressing will remain in place for 1 week. Pt tolerated post-op PT and was ambulating, transferring, and observing LEONORA precautions. Pt was d/c'd home on post-op day #1 and will follow-up with MD in 10-14 days Discharge Instructions Please refer to the electronic Patient Visit Report (Discharge Instructions) for additional information.
== END 2017-01-15 13:35 | disposition home health service (06) | DRG 470 ==
LOC: C.ACU 05:02 → C.3E 06:40 → ENRESERV 09:07
PROC: 0SR90JZ Replacement of Right Hip Joint with Synthetic Substitute, Open Approach (ICD-10-PCS; principal; 2017-01-14 07:00)
DX: M16.11 Unilateral primary osteoarthritis, right hip (principal); I10 Essential (primary) hypertension; M10.9 Gout, unspecified; E78.5 Hyperlipidemia, unspecified; Z87.891 Personal history of nicotine dependence; Z90.2 Acquired absence of lung [part of]; Z79.82 Long term (current) use of aspirin; Z79.899 Other long term (current) drug therapy

== ENCOUNTER → 2017-04-09 | Outpatient (CLI) | payer OTHER ==
[~2017-04-09] MED LIST changes: +ACET-24 PO; +ASPEC81 PO; -ASPI81TA28 PO; +CLB200 PO; -DICL-201 PO; +RXC5 PO
--- NOTE | 2017-04-09 10:38 | DIAGNOSTIC IMAGING REPORT ---
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 Images are reviewed in the axial, sagittal, and coronal planes. IV contrast was not administered for this examination. A dose lowering technique was utilized adhering to the principles of ALARA. FINDINGS: Thyroid: There is a multinodular thyroid gland with a dominant 29 mm left lobe thyroid nodule. Thoracic aorta: The thoracic aorta is normal in course and caliber, noting standard 3 vessel arch anatomy. Heart: There are coronary artery calcifications present. Lungs and pleural spaces: No pleural effusions are visualized. There are postsurgical changes of a right upper lobectomy. There is no focal pulmonary consolidation. There is suspicious pulmonary masses are visualized. There is a stable 7 x 2 mm left lower lobe perifissural nodule. Mediastinum: There are no pathologically enlarged spinal lymph nodes Shoshana: There is no evidence of pathologic hilar adenopathy given the limitations of a noncontrast study Axilla: Clear. Upper abdomen: Partially visualized upper abdominal viscera is within normal limits. 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 IMPRESSION: 1. Interval resection of the right upper lobe pulmonary mass. No CT evidence of recurrent disease. 2. Mild emphysema 3. Multinodular thyroid gland with a dominant 29 mm left lobe nodule Electronically signed by: Tenzin Mccracken M.D. 04/09/2017 10:37 AM Dictated Date/Time: 04/09/2017 10:32 AM
== END | disposition home or self-care (01) ==
LOC: C.CTS 10:09
PROVIDERS: ATTEND Surgery
DX: C34.90 Malignant neoplasm of unspecified part of unspecified bronchus or lung (principal); R91.1 Solitary pulmonary nodule; J43.9 Emphysema, unspecified; E04.2 Nontoxic multinodular goiter; Z90.2 Acquired absence of lung [part of]

== ENCOUNTER → 2017-10-08 | Outpatient (CLI) | payer OTHER ==
--- NOTE | 2017-10-08 11:15 | DIAGNOSTIC IMAGING REPORT ---
(CHEST) THORAX WITHOUT CT DOSE: 950.09 mGy.cm HISTORY: R91.1 Pulmonary nodule, [id number] Adenocarcinoma of [id number] TECHNIQUE: Multiaxial CT images of the chest were performed without contrast. A dose lowering technique was utilized adhering to the principles of ALARA. COMPARISON: Chest CT 04/09/2017. FINDINGS: There again noted postoperative changes consistent with a prior right upper lobectomy. The remaining central airways are patent. No pneumothorax. No pleural effusions. Mild emphysema. Stable 5 mm nodular density seen within the left major fissure on image 138. This is likely benign. Stable curvilinear density within the right middle lobe on image 189. This favors an area of scarring. No new or suspicious pulmonary nodules identified. No new focal lung consolidations. No suspicious lytic or blastic osseous lesions. Stable multinodular thyroid gland. Stable fat-containing intramuscular lesion within the right shoulder. This favors a lipoma. No mediastinal or hilar lymphadenopathy. The visualized liver, spleen, and adrenal glands are unremarkable. The heart is normal in size. Normal caliber thoracic aorta. There are coronary artery calcifications. IMPRESSION: No change compared to the prior study. No evidence for recurrent or metastatic disease within the chest. Electronically signed by: Wilfredo Belle M.D. 10/08/2017 11:14 AM Dictated Date/Time: 10/08/2017 11:06 AM
== END | disposition home or self-care (01) ==
LOC: C.CTS 10:39
PROVIDERS: ATTEND Surgery
DX: C34.90 Malignant neoplasm of unspecified part of unspecified bronchus or lung (principal); R91.1 Solitary pulmonary nodule